=== PATIENT | female | born 1990 | race Hispanic/Latino ===

== ENCOUNTER 2022-08-04 04:03 | Emergency (ER) | payer OTHER, SELFPAY ==
[2022-08-04] VITALS (11 sets, daily range): BP systolic 119–140; BP diastolic 63–79; PULSE 94; RESP 18; TEMP 36.9; O2SAT 97–100
--- NOTE | ~2022-08-04 | CT_ITS ---
CT of the Abdomen and Pelvis: Indication: Abdominal pain Technique: 2.5 mm axial scans were obtained through the abdomen and pelvis following intravenous adm inistration of 100 cc of Omnipaque 350. Dose reduction technique was used on this scan by utilizing a utomated exposure control and iterative reconstruction technique. The dose-length product (DLP) was 1 344.46 mGy-cm. Findings: Scans through the lung bases are unremarkable. The liver, spleen, pancreas, gallbladder, adrenals and left kidney are within normal limits. There is a 2 mm right UVJ stone (axial image 169), with mild right hydroureteronephrosis. No evidence of aort ic aneurysm. No lymphadenopathy. No bowel obstruction or bowel wall thickening. There is no evidence to suggest acute appendicitis. Images through the pelvis were performed. Urinary bladder otherwise unremarkable. No adnexal mass see n. No ascites. Impression: 2 mm right UVJ stone, with mild right hydroureteronephrosis. Reviewed, dictated and finalized at location . [employer] Impression: 2 mm right UVJ stone, with mild right hydroureteronephrosis.
[2022-08-04 05:17] LABS: Basophils Percent Auto 0.2 % (0.2-1.2); Hemoglobin 13.2 g/dL (12.0-15.0); Immature Granulocyte Absolute 0.06 K/mm3 (0.00-0.031); Immature Granulocyte Percent A 0.4 % (0-0.5); Lymphocytes Absolute Auto 1.22 K/mm3 (0.9-3.2); Lymphocytes Percent Auto 8.5 % (18.3-44.2); Mean Corpuscular Hemoglobin 28.5 pg (26-34); Mean Corpuscular Volume 86.4 fl (80-100); Mean Platelet Volume 9.5 fl (7.4-10.4); Monocytes Absolute Auto 0.5 K/mm3 (0.1-0.6); Monocytes Percent Auto 3.1 % (2.6-8.5); Neutrophils Absolute Auto 12.7 K/mm3 (1.3-6.7); Neutrophils Percent Auto 87.8 % (45.5-73.1); Platelet Count Result 432 k/mm3 (150-375); Red Blood Count 4.63 M/mm3 (4.2-5.4); Red Cell Distribution Width 13.4 % (11.5-14.5); White Blood Count 14.4 K/mm3 (4.5-10.0)
[2022-08-04] MEDS: SODIUM CHLORIDE 0.9% IV 1,000 ML 999 ML IV CONT ×2 (05:19→08:35)
[2022-08-04] MEDS: KETOROLAC 30 MG/ML VIAL (*BKC) IV PUSH (05:19)
[2022-08-04] MEDS: ONDANSETRON INJ 4 MG/2 ML VIAL IV PUSH (05:20)
--- NOTE | 2022-08-04 05:21 | ED.ABDPAIN ---
HPI - Abdominal Pain General Chief Complaint: Abdominal Pain <Shawnee Nuno MD - Last Filed: 08/04/22 07:21> Stated Complaint: abdominal pain/N/V <Shawnee Nuno MD - Last Filed: 08/04/22 07:21> Time Seen by Provider: 08/04/22 04:49 <Shawnee Nuno MD - Last Filed: 08/04/22 07:21> Source: patient and RN notes reviewed <Shawnee Nuno MD - Last Filed: 08/04/22 07:21> Mode of arrival: ambulatory <Shawnee Nuno MD - Last Filed: 08/04/22 07:21> Limitations: no limitations <Shawnee Nuno MD - Last Filed: 08/04/22 07:21> History of Present Illness HPI narrative: This is a 31 year old female with history of PCOS who presents for evaluation of right lower abdominal pain. She developed pain yesterday afternoon around 5 pm. She reports pain is constants and it intermittent radiates down her right leg. She developed nausea and vomiting with chills yesterday as well. She also reports dysuria. She denies being told of having ovarian cyst. She has not taken any medication for pain. Rates pain 8/10. <Shawnee Nuno MD - Last Filed: 08/04/22 07:21> Related Data Allergies/Adverse Reactions: Allergies Allergy/AdvReac Type Severity Reaction Status Date / Time Sulfa (Sulfonamide Allergy Rash Verified 08/04/22 05:10 Antibiotics) <Shawnee Nuno MD - Last Filed: 08/04/22 07:21> Review of Systems Constitutional: Constitutional: Denies weakness <Shawnee Nuno MD - Last Filed: 08/04/22 07:21> Cardiovascular: Cardiovascular: Denies syncope, Denies rapid heart rate, Denies irregular heart rhythm, Denies leg edema and Denies dyspnea <Shawnee Nuno MD - Last Filed: 08/04/22 07:21> Respiratory: Respiratory: Denies chest congestion, Denies hemoptysis, Denies excessive phlegm production and Denies dyspnea <Shawnee Nuno MD - Last Filed: 08/04/22 07:21> Gastrointestinal: Gastrointestinal: Reports abdominal pain, Denies hematochezia, Denies diarrhea, Reports nausea and Reports vomiting <Shawnee Nuno MD - Last Filed: 08/04/22 07:21> Genitourinary: Genitourinary: Reports abnormal vaginal bleeding, Denies hematuria, Reports nocturia and Reports dysuria <Shawnee Nuno MD - Last Filed: 08/04/22 07:21> Musculoskeletal: Musculoskeletal: Denies joint swelling, Denies loss of height and Denies muscle weakness <Shawnee Nuno MD - Last Filed: 08/04/22 07:21> Neurologic: Denies syncope, Denies focal weakness and Denies weakness <Shawnee Nuno MD - Last Filed: 08/04/22 07:21> [facility] Past Medical History Medical History: Medical History (Updated 08/04/22 @ 09:20 by Anupam Granados MD) PCOS (polycystic ovarian syndrome) <Shawnee Nuno MD - Last Filed: 08/04/22 07:21> Social History Social History: Social History (Updated 08/04/22 @ 05:26 by Shawnee Nuno MD) Smoking status: Never smoker <Shawnee Nuno MD - Last Filed: 08/04/22 07:21> Exam Const: Nutritional Appearance: well nourished and obese <Shawnee Nuno MD - Last Filed: 08/04/22 07:21> Orientation/consciousness: patient oriented x3 <Shawnee Nuno MD - Last Filed: 08/04/22 07:21> Limitations: no limitations <Shawnee Nuno MD - Last Filed: 08/04/22 07:21> HENMT: Head: normal to inspection <Shawnee Nuno MD - Last Filed: 08/04/22 07:21> Eyes: EOM: EOMs intact bilaterally <Shawnee Nuno MD - Last Filed: 08/04/22 07:21> Chest: Chest palpation & inspection: normal inspection of the chest <Shawnee Nuno MD - Last Filed: 08/04/22 07:21> Resp: Effort & Inspection: normal respiratory effort <Shawnee Nuno MD - Last Filed: 08/04/22 07:21> Auscultation: clear to auscultation bilaterally <Shawnee Nuno MD - Last Filed: 08/04/22 07:21> Cardio: Rate: regular rate <Shawnee Nuno MD - Last Filed: 08/04/22 07:21> Rhythm: regular rhythm <Shawnee Nuno MD - Last Filed: 08/04/22 07:21> Heart sounds: no murmurs <
[2022-08-04 05:27] LABS: Alanine Aminotransferase 26 U/L (6-35); Albumin Level 4.8 g/dL (3.5-5.1); Alkaline Phosphatase 85 U/L (38-126); Anion Gap 10 mmol/L (8-16); Aspartate Amino Transferase 26 U/L (14-36); Bilirubin,Total 0.5 mg/dL (0.2-1.3); Blood Urea Nitrogen 12 mg/dL (7-17); Calcium 9.8 mg/dL (8.4-10.2); Carbon Dioxide 24 mmol/L (22-30); Chloride 102 mmol/L (98-107); Estimated CRCL calculation 139 ml/min; Estimated Glomerular Filt Rate > 60; Glucose 139 mg/dL (65-110); Lipase 47 U/L (23-300); Potassium 3.8 mmol/L (3.4-5.0); Sodium 136 mmol/L (137-145)
[2022-08-04 05:37] LABS: Appearance Urine Cloudy (Clear); Bacteria Urine None Seen /hpf; Bilirubin Urine Negative (Negative); Blood Urine 3+ (Negative); Color Urine Yellow (Yellow); Glucose Urine UA Negative (Negative); Ketones Urine 1+ mg/dL (Negative); Leukocyte Esterase Ur 1+ LEU/UL (Negative); Nitrate Urine Negative (Negative); Non Pathogenic Casts 0-2; Protein Urine 1+ mg/dL (Negative); RBC Urine >100 /hpf (0-2); Specific Grav Ur 1.024 (1.001-1.035); Squamous Epithelial Cell Urine Occasional /hpf (Few); Urobilinogen Urine 0.2 mg/dL (<2.0); pH Urine 7.5 (5.0-9.0)
[2022-08-04 05:55] LABS: Add Urine Microscopic? YES
[2022-08-04] MEDS: HYDROmorphone HCL INJ (*CRX) 1 MG/ML SYR 0.5 MG IV PUSH (08:35)
[2022-08-04] MEDS: METOCLOPRAMIDE HCL INJ 10 MG/2 ML VIAL IV PUSH (08:35)
[2022-08-04] MEDS: TAMSULOSIN HCL 0.4 MG CAPSULE PO (08:41)
== END 2022-08-04 10:35 | disposition home or self-care (01) ==
PROVIDERS: Emergency Provider General Practice; PCP Family Medicine
DX: N13.2 Hydronephrosis with renal and ureteral calculous obstruction (principal); E28.2 Polycystic ovarian syndrome
CPT/HCPCS: 36415; 74177; 80053; 81001; 81025; 83690; 85025; 87086; 87088; 87147; 96361; 96374; 96375; 99284; A9270; J1170; J1885; J2405; J2765; J7030; Q9967

== ENCOUNTER 2022-12-22 01:17 | Emergency (ER) | payer OTHER, SELFPAY ==
--- NOTE | ~2022-12-22 | CT_ITS ---
Non-contrast CT scan of the Abdomen and Pelvis Clinical indication: Abdominal pain Technique: 2.5 mm axial scans were obtained through the abdomen and pelvis without intravenous or or al contrast. Dose reduction technique was used on this scan by utilizing automated exposure control a nd iterative reconstruction technique. The dose-length product (DLP) was 664.03 mGy-cm. COMPARISON: 08/04/2022 Findings: Images through the lung bases reveal no abnormalities. Suspected 2 mm stone at the right UVJ, versus possibly phlebolith. Distal ureter is difficult to visu alized. Probable minimal right hydronephrosis. Additional punctate nonobstructing right renal stone i s present. No left renal or left ureteral stone. No left hydronephrosis. The liver, spleen, pancreas, gallbladder, and adrenals appear normal. There is no aortic aneurysm. There is no evidence of bowel obstruction. Normal appendix. Images through the pelvis were performed. There is no evidence of ascites or lymphadenopathy. Probabl e 2.5 cm right adnexal cyst. Impression: Suspected 2 mm right UVJ stone with minimal right hydronephrosis, similar to prior exam. Small pelvic phlebolith is a potential alternative consideration. Distal ureter is difficult to visualize on this exam. Additional punctate nonobstructing right renal stone. Probable 2.5 cm right adnexal cyst. Reviewed, dictated and finalized at [facility]. Impression: Suspected 2 mm right UVJ stone with minimal right hydronephrosis, similar to pr ior exam. Small pelvic phlebolith is a potential alternative consideration. Dis fransisca ureter is difficult to visualize on this exam. Additional punctate nonobstructing right renal stone. Probable 2.5 cm right adnexal cyst.
[2022-12-22 01:22] VITALS: BP 132/81; PULSE 90; RESP 18; TEMP 36.4; O2SAT 100
[2022-12-22 01:38] LABS: Basophils Absolute Auto 0.1 K/mm3 (0.0-0.1); Basophils Percent Auto 0.4 % (0.2-1.2); Eosinophils Absolute Auto 0.5 K/mm3 (0-0.3); Hematocrit 39.1 % (37.0-47.0); Hemoglobin 12.7 g/dL (12.0-15.0); Immature Granulocyte Absolute 0.06 K/mm3 (0.00-0.031); Immature Granulocyte Percent A 0.5 % (0-0.5); Lymphocytes Absolute Auto 2.05 K/mm3 (0.9-3.2); Mean Corpuscular HGB Conc 32.5 g/dl (32-36); Mean Corpuscular Volume 86.3 fl (80-100); Mean Platelet Volume 9.3 fl (7.4-10.4); Monocytes Absolute Auto 0.8 K/mm3 (0.1-0.6); Monocytes Percent Auto 6.9 % (2.6-8.5); Neutrophils Absolute Auto 8.6 K/mm3 (1.3-6.7); Neutrophils Percent Auto 71.2 % (45.5-73.1); Platelet Count Result 382 k/mm3 (150-375); Red Blood Count 4.53 M/mm3 (4.2-5.4); Red Cell Distribution Width 13.6 % (11.5-14.5); White Blood Count 12.1 K/mm3 (4.5-10.0)
[2022-12-22 01:44] LABS: Appearance Urine Clear (Clear); Bacteria Urine None Seen /hpf; Bilirubin Urine Negative (Negative); Color Urine Yellow (Yellow); Glucose Urine UA Negative (Negative); Ketones Urine Negative (Negative); Leukocyte Esterase Ur Negative LEU/UL (Negative); Nitrate Urine Negative (Negative); Non Pathogenic Casts 0-2; Protein Urine Negative (Negative); Squamous Epithelial Cell Urine None seen /hpf (Few); Urobilinogen Urine 0.2 mg/dL (<2.0); WBC Urine 0-5 /hpf
[2022-12-22 01:47] LABS: Alanine Aminotransferase 31 U/L (6-35); Albumin Level 4.4 g/dL (3.5-5.1); Alkaline Phosphatase 99 U/L (38-126); Anion Gap 6 mmol/L (8-16); Aspartate Amino Transferase 27 U/L (14-36); Bilirubin,Total 0.4 mg/dL (0.2-1.3); Blood Urea Nitrogen 11 mg/dL (7-17); Calcium 9.3 mg/dL (8.4-10.2); Carbon Dioxide 26 mmol/L (22-30); Chloride 104 mmol/L (98-107); Estimated CRCL calculation 120 ml/min; Estimated Glomerular Filt Rate > 60; Glucose 106 mg/dL (65-110); Potassium 3.6 mmol/L (3.4-5.0); Sodium 136 mmol/L (137-145)
[2022-12-22 01:48] LABS: Add Urine Microscopic? YES
--- NOTE | 2022-12-22 02:11 | ED.ABDPAIN ---
HPI - Abdominal Pain General Chief Complaint: Urogenital-Female Stated Complaint: r flank pain Time Seen by Provider: 12/22/22 01:43 History of Present Illness HPI narrative: This is a 32-year-old female with past history of kidney stones, presenting to the emergency department complaining of right lower quadrant abdominal pain, described as intermittently sharp and cramping for the past day. Patient states her pain began this morning, initially in the back and now radiating to the right lower quadrant. She also complains of sensation of need to urinate. She denies fevers, chills though has had nausea and vomiting Related Data Home Medications Medication Instructions Recorded Confirmed drospirenone 3 mg-ethinyl 1 tablet PO DAILY 10/19/22 10/19/22 estradiol 0.03 mg tablet Allergies Allergy/AdvReac Type Severity Reaction Status Date / Time Sulfa (Sulfonamide Allergy Severe Rash Verified 10/19/22 14:10 Antibiotics) Review of Systems Review of Systems: CONSTITUTIONAL: Denies fever, chills, or sweats. CARDIOVASCULAR: Denies chest pain, palpitations, or edema. RESPIRATORY: Denies cough or dyspnea. GASTROINTESTINAL: Right lower quadrant abdominal pain, right flank pain, nausea denies vomiting, or diarrhea. GENITOURINARY: Denies dysuria or hematuria. SKIN: Denies rash or itching. MUSCULOSKELETAL: Denies back pain, joint pain, or myalgia. NEUROLOGIC: Denies headache, numbness, dizziness, or weakness. PSYCHIATRIC: Denies anxiety or depression. [facility] Past Medical History Medical History (Updated 12/22/22 @ 05:21 by Tl Lam MD) Gallstones Gastroesophageal reflux disease without esophagitis Irritable bowel syndrome Mood disorder PCOS (polycystic ovarian syndrome) PCOS (polycystic ovarian syndrome) Family History Family History Father Family history of elevated blood lipids Family history of type 2 diabetes mellitus Social History Social History Smoking status: Never smoker Second hand tobacco smoke exposure: No Alcohol intake: current Substance use: never Substance use type: does not use Lack of Transportation: No Lack of Food: Never True Current Housing: I Have Housing Concerned About Future Housing: No Difficulty Paying Gas/Electric Bills: No Difficulty Paying for Meds: No Currently Unemployed: No Education: Bachelor's Degree Difficulty w/ Childcare or Family Care: No Spiritual care concerns: No Agree to blood products: Yes Exam Narrative: GENERAL: Well-developed, well-nourished, and in no acute distress. HEAD: Normocephalic, atraumatic. EYES: PERRLA and EOMI. ENT: Nares clear, no rhinorrhea or epistaxis. Mucous membranes dry. Oropharynx without tonsillar hypertrophy exudate or other lesions. CHEST: Clear to auscultation. No respiratory distress. No wheezes rales or rhonchi HEART: Regular rate and rhythm. No murmur heard. Normal peripheral pulses. ABDOMEN: Soft, mild tenderness to palpation in the RLQ without rebound or guarding, nondistended, normal active bowel sounds. Right CVA tenderness to palpation, no left CVA tenderness to palpation EXTREMITIES: Normal range of motion. No edema. SKIN: Warm, dry, no rash. NEURO: No focal deficits. Alert and oriented x3. PSYCH: Normal mood and affect. Course Course Emergency Course: 05:20 - CT abdomen pelvis demonstrates a 2mm stone at the right UVJ. UA not concerning for UTI. CBC demonstrates WBC elevation at 12.1 but is otherwise unremarkable. CMP unremarkable. The patient's pain is controlled. Will discharge with Tamsulosin, pain medications and nausea medications. Will refer the patient to urology. Discussed return and emergency precautions including signs/symptoms of acute abdomen and sepsis. The patient voiced understanding and is comfortable with the plan. All questions answered to her s
[2022-12-22] MEDS: ONDANSETRON INJ 4 MG/2 ML VIAL IV PUSH (02:57)
[2022-12-22] MEDS: KETOROLAC 30 MG/ML VIAL (*BKC) IV PUSH (02:57)
[2022-12-22] MEDS: MORPHINE SULFATE (*CRX) 2 MG/ML INJ IV PUSH (02:58)
[2022-12-22 04:14] VITALS: BP 142/74; PULSE 97; RESP 20; O2SAT 98
[2022-12-22 06:16] VITALS: BP 111/69; PULSE 68; RESP 20; O2SAT 98
== END 2022-12-22 06:19 | disposition home or self-care (01) ==
PROVIDERS: Emergency Provider Preventive Medicine Aerospace Medicine; PCP Family Medicine
DX: N20.0 Calculus of kidney (principal); R10.31 Right lower quadrant pain; K21.9 Gastro-esophageal reflux disease without esophagitis; K58.9 Irritable bowel syndrome, unspecified; E28.2 Polycystic ovarian syndrome; Z79.85 Long-term (current) use of injectable non-insulin antidiabetic drugs
CPT/HCPCS: 36415; 74176; 80053; 81001; 81025; 85025; 96374; 96375; 99284; J1885; J2270; J2405

== ENCOUNTER → 2023-02-17 11:17 | Outpatient (CLI) | payer OTHER, SELFPAY ==
--- NOTE | ~2023-02-17 | XR_ITS ---
Thoracic spine: Clinical Indication: Back pain AP and lateral views were performed. No fracture is seen. There is normal alignment of the vertebrae. The intervertebral disc spaces appe ar normal. Paravertebral soft tissues appear normal. Impression: No significant abnormalities noted. Reviewed, dictated and finalized at [facility]. Impression: No significant abnormalities noted.
--- NOTE | ~2023-02-17 | XR_ITS ---
Lumbosacral Spine: AP, oblique, and lateral views Clinical History: Pain Findings: The normal lordotic curve is maintained. The vertebral bodies and posterior elements are i ntact. The intervertebral disc spaces are preserved. The sacroiliac joints are normally outlined. Impression: No significant abnormality. Reviewed, dictated and finalized at [facility]. Impression: No significant abnormality.
== END ==
PROVIDERS: PCP Family Medicine; Visit Provider Family Medicine
DX: M47.816 Spondylosis without myelopathy or radiculopathy, lumbar region (principal); M54.6 Pain in thoracic spine
CPT/HCPCS: 72070; 72110

== ENCOUNTER 2023-05-10 11:48 | Outpatient (CLI) | payer OTHER, SELFPAY ==
[2023-05-10 13:12] LABS: Influenza A QL RT-PCR Negative (Negative); Influenza B QL RT-PCR Negative (Negative); RSV RNA, RT-PCR Negative (Negative); SARS-CoV-2 RNA PCR Negative (Negative)
== END 2023-05-10 11:49 | disposition home or self-care (01) ==
LOC: ANHLAB 11:49
PROVIDERS: PCP Family Medicine; Visit Provider Family Medicine
DX: J06.9 Acute upper respiratory infection, unspecified (principal); Z20.822 Contact with and (suspected) exposure to COVID-19
CPT/HCPCS: 87637

== ENCOUNTER 2023-05-24 11:56 | Outpatient (CLI) | payer OTHER, SELFPAY ==
--- NOTE | ~2023-05-24 | XR_ITS ---
Clinical Indication: Cough PA and lateral views of the chest: Comparison: None Findings: The lungs are clear, without evidence of focal consolidation or pleural effusion. Cardiome diastinal silhouette is within normal limits. Bones and soft tissues are unremarkable. Impression: Normal chest. Reviewed, dictated and finalized at location . [employer] Impression: Normal chest.
== END 2023-05-24 11:57 | disposition home or self-care (01) ==
PROVIDERS: PCP Family Medicine; Visit Provider Physician Assistant
DX: R05.9 Cough, unspecified (principal)
CPT/HCPCS: 71046

== ENCOUNTER 2023-07-20 17:28 | Outpatient (CLI) | payer OTHER, SELFPAY ==
[2023-07-20 18:18] LABS: Appearance Urine Clear (Clear); Bacteria Urine None Seen /hpf; Bilirubin Urine Negative (Negative); Blood Urine 3+ (Negative); Color Urine Yellow (Yellow); Glucose Urine UA Negative (Negative); Ketones Urine Negative (Negative); Leukocyte Esterase Ur Negative LEU/UL (Negative); Nitrate Urine Negative (Negative); Non Pathogenic Casts 0-2; Protein Urine Negative (Negative); RBC Urine 51-100 /hpf (0-2); Specific Grav Ur 1.019 (1.001-1.035); Squamous Epithelial Cell Urine Occasional /hpf (Few); Urobilinogen Urine 0.2 mg/dL (<2.0); WBC Urine 0-5 /hpf; pH Urine 6.5 (5.0-9.0)
[2023-07-20 18:23] LABS: Add Urine Microscopic? YES
== END 2023-07-20 17:29 | disposition home or self-care (01) ==
LOC: ANHLAB 17:30
PROVIDERS: PCP Family Medicine; Visit Provider Family Medicine
DX: M54.9 Dorsalgia, unspecified (principal); N20.0 Calculus of kidney
CPT/HCPCS: 81001

== ENCOUNTER 2023-07-23 19:22 | Emergency (ER) | payer OTHER, SELFPAY ==
--- NOTE | ~2023-07-23 | CT_ITS ---
EXAMINATION: CT abdomen pelvis wo con DATE: 07/23/2023 23:19 INDICATION: R abd pain, hematuria, R flank pain TECHNIQUE: Computed tomography (CT) of the abdomen and pelvis was performed without intravenous contr ast. Automated exposure control and iterative reconstruction technique were employed. The dose-length product was 445.60 mGy-cm. COMPARISON: 12/22/2022. FINDINGS: Lower thorax: Unremarkable Liver: Normal. Biliary/Gallbladder: Gallbladder is normal. No bile duct dilation. Pancreas: No mass or duct dilation. Spleen: Normal. Adrenals:No mass. Kidneys: No suspicious mass, obstructing stone, or hydronephrosis. Punctate nonobstructing right uppe r pole calcification. GI tract: No small or large bowel dilation. Normal appendix. Mesentery/Peritoneum: No ascites, mass, or free air. Retroperitoneum: No mass. Pelvis: Pelvic organs are within normal limits. Soft Tissues: Soft tissues and body wall unremarkable. Bones: No acute osseous finding. IMPRESSION: No acute abdominopelvic process detected. Reviewed, dictated and finalized at location [facility]
[2023-07-23 19:42] VITALS: BP 150/104; PULSE 87; RESP 18; TEMP 36.2; O2SAT 100
--- NOTE | 2023-07-23 19:45 | ED.FEMALEGU ---
HPI - Female Genitourinary General Chief complaint: Urogenital-Female Stated complaint: hematura Time Seen by Provider: 07/23/23 19:46 Focused HPI: 32 y/o F with a hx of kidney stones reports for evaluation for hematuria and back pain x1 week. Pt reports associated intermittent dysuria, urinary freq and urgency, nausea and vomiting. Denies known fever. Reports R sided abdominal pain. States she is concerned she has another kidney stone. Her urologists name Dr. Gordon at [facility]. LMP 2 weeks ago. GENERAL: Well-appearing, well-nourished, and in no acute distress. HEAD: Normocephalic, atraumatic. CHEST: Clear to auscultation. ?No respiratory distress. HEART: Regular rate and rhythm.? ABD: Tenderness to RUQ and RLQ. R CVA tenderness. No rebound, guarding or rigidity NEURO: ?Alert and oriented x3. Patient screened in triage and initial orders placed.? ?Additional care and disposition to be based upon?diagnostic testing and treatment. History of Present Illness HPI Narrative: 32 y/o F with a hx of kidney stones reports for evaluation for hematuria and back pain x1 week. Pt reports associated intermittent dysuria, urinary freq and urgency, nausea and vomiting. Denies known fever. Reports R sided abdominal pain and low back pain. States she is concerned she has another kidney stone. Her urologists name Dr. Gordon at [facility]. LMP 2 weeks ago. Reports history of PCOS. She denies vaginal discharge or concern for STDs. She has never been sexually active. Related Data Home Medications Medication Instructions Recorded Confirmed drospirenone 3 mg-ethinyl 1 tablet PO DAILY 10/19/22 05/27/23 estradiol 0.03 mg tablet Allergies Allergy/AdvReac Type Severity Reaction Status Date / Time Sulfa (Sulfonamide Allergy Severe Rash Verified 06/08/23 11:38 Antibiotics) Review of Systems Review of Systems: CONSTITUTIONAL: Denies fever, chills, or sweats. EYES: Denies visual changes, redness, or discharge. ENT: Denies rhinorrhea, congestion, sore throat, or otalgia. CARDIOVASCULAR: Denies chest pain, palpitations, or edema. RESPIRATORY: Denies cough or dyspnea. GASTROINTESTINAL: See HPI GENITOURINARY: See HPI SKIN: Denies rash or itching. MUSCULOSKELETAL: See HPI NEUROLOGIC: Denies headache, numbness, or weakness. PSYCHIATRIC: Denies anxiety or depression. [facility] Past Medical History Medical History (Updated 07/24/23 @ 00:52 by Ana María Mendiola PA-C) Gallstones Gastroesophageal reflux disease without esophagitis Irritable bowel syndrome Mood disorder PCOS (polycystic ovarian syndrome) PCOS (polycystic ovarian syndrome) Family History Family History Father Family history of elevated blood lipids Family history of type 2 diabetes mellitus Social History Social History Smoking status: Never smoker Second hand tobacco smoke exposure: No Alcohol intake: current Substance use: never Substance use type: does not use Lack of Transportation: No Lack of Food: Never True Current Housing: I Have Housing Concerned About Future Housing: No Difficulty Paying Gas/Electric Bills: No Difficulty Paying for Meds: No Currently Unemployed: No Education: Bachelor's Degree Difficulty w/ Childcare or Family Care: No Spiritual care concerns: No Agree to blood products: Yes Exam Narrative: GENERAL: Well-appearing, well-nourished, and in no acute distress. Patient resting comfortably in exam bed. She is pleasant and conversational. HEAD: Normocephalic, atraumatic. EYES: PERRLA and EOMI. ENT: Nares clear, no rhinorrhea or epistaxis. Mucous membranes moist. NECK: Supple. CHEST: Clear to auscultation. No respiratory distress. HEART: Regular rate and rhythm. No murmur heard. Normal peripheral pulses. ABDOMEN: Normoactive bowel sounds. Abdomen soft with mild tenderness in the right l
[2023-07-23 20:18] LABS: Basophils Percent Auto 0.4 % (0.2-1.2); Eosinophils Absolute Auto 0.1 K/mm3 (0-0.3); Eosinophils Percent Auto 1.5 % (0-4.4); Hematocrit 38.8 % (37.0-47.0); Hemoglobin 12.5 g/dL (12.0-15.0); Immature Granulocyte Absolute 0.02 K/mm3 (0.00-0.031); Immature Granulocyte Percent A 0.2 % (0-0.5); Lymphocytes Absolute Auto 1.93 K/mm3 (0.9-3.2); Mean Corpuscular HGB Conc 32.2 g/dl (32-36); Mean Corpuscular Hemoglobin 28.4 pg (26-34); Mean Corpuscular Volume 88.2 fl (80-100); Mean Platelet Volume 9.4 fl (7.4-10.4); Monocytes Absolute Auto 0.6 K/mm3 (0.1-0.6); Monocytes Percent Auto 6.6 % (2.6-8.5); Neutrophils Absolute Auto 6.5 K/mm3 (1.3-6.7); Neutrophils Percent Auto 70.3 % (45.5-73.1); Platelet Count Result 428 k/mm3 (150-375); Red Cell Distribution Width 13.1 % (11.5-14.5); White Blood Count 9.2 K/mm3 (4.5-10.0)
[2023-07-23 20:22] LABS: Appearance Urine Turbid (Clear); Bacteria Urine None Seen /hpf; Bilirubin Urine 2+ (Negative); Blood Urine 3+ (Negative); Color Urine Red (Yellow); Glucose Urine UA Negative (Negative); Ketones Urine Negative (Negative); Leukocyte Esterase Ur 1+ LEU/UL (Negative); Nitrate Urine Negative (Negative); Non Pathogenic Casts 0-2; Protein Urine 1+ mg/dL (Negative); RBC Urine >100 /hpf (0-2); Specific Grav Ur 1.014 (1.001-1.035); Squamous Epithelial Cell Urine Occasional /hpf (Few); Urobilinogen Urine 0.2 mg/dL (<2.0)
[2023-07-23 20:23] LABS: Add Urine Microscopic? YES
[2023-07-23 20:29] LABS: Alanine Aminotransferase 17 U/L (6-35); Albumin Level 4.3 g/dL (3.5-5.1); Alkaline Phosphatase 63 U/L (38-126); Anion Gap 8 mmol/L (8-16); Aspartate Amino Transferase 21 U/L (14-36); Bilirubin,Total 0.5 mg/dL (0.2-1.3); Blood Urea Nitrogen 10 mg/dL (7-17); Calcium 9.3 mg/dL (8.4-10.2); Carbon Dioxide 24 mmol/L (22-30); Chloride 105 mmol/L (98-107); Estimated CRCL calculation 130 ml/min; Estimated Glomerular Filt Rate > 60; Glucose 122 mg/dL (65-110); Lipase 117 U/L (23-300); Potassium 3.6 mmol/L (3.4-5.0); Sodium 137 mmol/L (137-145)
[2023-07-24 00:24] LABS: Pregnancy On Board Control Positive; Urine Pregnancy Test Negative
[2023-07-24] MEDS: ACETAMINOPHEN 500 MG TABLET 1000 MG PO (00:29)
[2023-07-24 00:34] VITALS: BP 127/86; PULSE 79; RESP 17; O2SAT 96
[2023-07-24 00:46] VITALS: BP 123/72; PULSE 82; RESP 24
[2023-07-24 01:00] VITALS: PULSE 75; RESP 24
[2023-07-24] MEDS: IBUPROFEN 400 MG TABLET 800 MG PO (01:02)
== END 2023-07-24 01:12 | disposition home or self-care (01) ==
PROVIDERS: Emergency Provider Physician Assistant; PCP Family Medicine
DX: N93.8 Other specified abnormal uterine and vaginal bleeding (principal)
CPT/HCPCS: 36415; 74176; 80053; 81001; 81025; 83690; 85025; 87086; 99284; A9270

== ENCOUNTER 2023-10-22 14:37 | Emergency (ER) | payer OTHER, SELFPAY ==
--- NOTE | 2023-10-22 14:39 | ED.URI ---
HPI - URI/Sore Throat General Chief Complaint: Upper Respiratory Infection Stated Complaint: throat raw,difficulty breathing last pm Time Seen by Provider: 10/22/23 15:08 Source: patient and RN notes reviewed Mode of arrival: ambulatory Limitations: no limitations History of Present Illness HPI Narrative: 33-year-old female presents with concern for for off throat, feeling of difficulty breathing last night when she woke up. She reports she restarted the metformin yesterday, she thinks she may be having a reaction to that. MD elicited complaint: sore throat Related Data Home Medications Medication Instructions Recorded Confirmed drospirenone 3 mg-ethinyl 1 tablet PO DAILY 10/19/22 09/08/23 estradiol 0.03 mg tablet metformin 500 mg tablet,extended 500 mg PO DAILY 10/22/23 10/22/23 release 24 hr Allergies Allergy/AdvReac Type Severity Reaction Status Date / Time Sulfa (Sulfonamide Allergy Severe Rash Verified 10/22/23 15:06 Antibiotics) Review of Systems Review of Systems: CONSTITUTIONAL: Denies malaise, chills, sweats, or fever. EYES: Denies visual changes, redness, or discharge. ENT: Denies rhinorrhea, congestion, sinus pain, otalgia. Reports sore throat. CARDIOVASCULAR: Denies chest pain, palpitations, or edema. RESPIRATORY: Denies cough. Denies current dyspnea. Reports feeling of trouble breathing overnight GASTROINTESTINAL: Denies abdominal pain, nausea, vomiting, diarrhea SKIN: Denies rash or itching. MUSCULOSKELETAL: Denies myalgia. NEUROLOGIC: Denies headache. All systems reviewed & are unremarkable except as noted in HPI and below PMFSH Past Medical History Medical History (Updated 10/22/23 @ 15:14 by Hina Sanchez NP) Gallstones Gastroesophageal reflux disease without esophagitis Irritable bowel syndrome Mood disorder PCOS (polycystic ovarian syndrome) PCOS (polycystic ovarian syndrome) Family History Family History Father Family history of elevated blood lipids Family history of type 2 diabetes mellitus Social History Social History Smoking status: Never smoker Second hand tobacco smoke exposure: No Alcohol intake: current Substance use: never Substance use type: does not use Lack of Transportation: No Lack of Food: Never True Current Housing: I Have Housing Concerned About Future Housing: No Difficulty Paying Gas/Electric Bills: No Difficulty Paying for Meds: No Currently Unemployed: No Education: Bachelor's Degree Difficulty w/ Childcare or Family Care: No Spiritual care concerns: No Agree to blood products: Yes Comments At time of signature, agree with nursing past medical, surgical, social and family history. There is no relevant family history pertinent to the presenting complaint Exam Narrative: GENERAL: Well-appearing, well-nourished, and in no acute distress. HEAD: Normocephalic EYES: PERRLA, conjunctivae clear ENT: Nares clear. Mucous membranes moist. TM pearly golden with sharp light reflex bilaterally; no tragal tenderness. Oropharynx erythematous with erythema to the roof the mouth. Tonsils enlarged and without exudate, no drooling, no hoarseness, no trismus, uvula midline. NECK: Supple. No lymphadenopathy CHEST: Clear to auscultation, breath sounds equal. No wheezing, rhonchi, rales, or stridor. No respiratory distress, speaks in full sentences. HEART: Regular rate and rhythm. No murmur heard. SKIN: Warm, dry, no rash. NEURO: Alert and oriented x3. PSYCH: Normal mood and affect Course Course Emergency Course: Patient is aware of diagnosis, understands and agrees to treatment plan. Anticipatory guidance given. Patient agrees to follow-up as directed and is aware of reasons to seek care at the emergency department. Portions of this record may have been created with voice recognition software
[2023-10-22 14:48] VITALS: BP 139/84; PULSE 126; RESP 16; TEMP 37.8; O2SAT 100
== END 2023-10-22 15:18 | disposition home or self-care (01) ==
PROVIDERS: Emergency Provider Nurse Practitioner; PCP Family Medicine
DX: J02.0 Streptococcal pharyngitis (principal); K21.9 Gastro-esophageal reflux disease without esophagitis; E28.2 Polycystic ovarian syndrome
CPT/HCPCS: 87880; 99213; G0463

== ENCOUNTER 2023-11-09 11:01 | Emergency (ER) | payer OTHER, SELFPAY ==
--- NOTE | ~2023-11-09 | XR_ITS ---
EXAMINATION: XR ankle LT min 3V DATE: 11/09/2023 11:36 INDICATION: Left ankle pain and swelling. Inversion injury. TECHNIQUE: 4 views of left ankle were obtained. COMPARISON: None. FINDINGS: Bone alignment is normal. No fracture. Joint spaces are normal. There are enthesophytes at the posterior and plantar aspects of calcaneal tuberosity. Ankle soft tissue swelling is noted. IMPRESSION: 1. No fracture. Reviewed, dictated and finalized at location A. IMPRESSION: 1. No fracture.
--- NOTE | 2023-11-09 11:06 | ED.LOWEXIN ---
HPI - Extremity Injury (Lower) General Chief Complaint: Extremity Injury, Lower Stated Complaint: left foot injury Time Seen by Provider: 11/09/23 11:20 Source: patient, RN notes reviewed and old records reviewed Mode of arrival: ambulatory Limitations: no limitations History of Present Illness HPI Narrative: 33-year-old female presents to the [facility] with left lateral ankle pain and swelling. Patient states that she was walking downstairs missed the bottom 2 stairs and rolled her ankle underneath her. Swelling noted to the lateral malleolus. Onset (ago): day(s) (1) Related Data Home Medications Medication Instructions Recorded Confirmed drospirenone 3 mg-ethinyl 1 tablet PO DAILY 10/19/22 11/09/23 estradiol 0.03 mg tablet Allergies Allergy/AdvReac Type Severity Reaction Status Date / Time Sulfa (Sulfonamide Allergy Severe Rash Verified 11/09/23 11:02 Antibiotics) Review of Systems Review of Systems: All systems reviewed & are unremarkable except as noted in HPI and below Constitutional: Constitutional: Reports no additional constitutional complaints Eyes: Eyes: Reports no additional eye complaints ENT: Reports system reviewed and no additional complaints, except as documented Cardiovascular: Cardiovascular: Reports no additional cardiovascular complaints, Denies chest pain and Denies dyspnea Respiratory: Respiratory: Reports no additional respiratory complaints, Denies chest congestion, Denies cough and Denies dyspnea Gastrointestinal: Gastrointestinal: Reports no additional gastrointestinal complaints, Denies abdominal pain, Denies nausea and Denies vomiting Musculoskeletal: Musculoskeletal: Reports as per HPI, Reports arthralgias and Reports joint swelling Integumentary/Breasts: Skin/Breast: Reports system reviewed and no additional complaints, except as docu Neurologic: Reports system reviewed and no additional complaints, except as documented Psychiatric: Psychiatric: Reports no additional psychiatric complaints Allergic/Immunologic: Allergic/Immunologic: Reports no additional allergic/immunologic complaints [facility] Past Medical History Medical History Gallstones Gastroesophageal reflux disease without esophagitis Irritable bowel syndrome Mood disorder PCOS (polycystic ovarian syndrome) PCOS (polycystic ovarian syndrome) Family History Family History Father Family history of elevated blood lipids Family history of type 2 diabetes mellitus Social History Social History (Reviewed 11/09/23 @ 14:19 by ALEJANDRA Long Smoking status: Never smoker Second hand tobacco smoke exposure: No Alcohol intake: current Substance use: never Substance use type: does not use Lack of Transportation: No Lack of Food: Never True Current Housing: I Have Housing Concerned About Future Housing: No Difficulty Paying Gas/Electric Bills: No Difficulty Paying for Meds: No Currently Unemployed: No Education: Bachelor's Degree Difficulty w/ Childcare or Family Care: No Spiritual care concerns: No Agree to blood products: Yes Comments At the time of my signature, I reviewed and agree with the nursing past medical, surgical, social, and family history. There is no relevant family history pertinent to the patient complaint. Exam Const: General: cooperative, healthy appearing, comfortable, no acute distress, well developed, alert and well nourished Nutritional Appearance: well nourished Orientation/consciousness: patient oriented x3 Limitations: no limitations HENMT: Head: normal to inspection Ears: hearing grossly normal bilaterally and external ears normal Face/Nose/Sinus: Normal external nose present, Normal nares present, Normal nasal mucous membranes and turbinates present, normal facial exam and face symmetric Face and sinus: normal facial exam and face
[2023-11-09 11:22] VITALS: BP 139/76; PULSE 112; RESP 20; TEMP 36.8; O2SAT 98
== END 2023-11-09 12:15 | disposition home or self-care (01) ==
PROVIDERS: Emergency Provider Nurse Practitioner; PCP Family Medicine
DX: S93.402A Sprain of unspecified ligament of left ankle, initial encounter (principal); S96.912A Strain of unspecified muscle and tendon at ankle and foot level, left foot, initial encounter; X50.9XXA Other and unspecified overexertion or strenuous movements or postures, initial encounter; K21.9 Gastro-esophageal reflux disease without esophagitis; E28.2 Polycystic ovarian syndrome
CPT/HCPCS: 73610; 99213; G0463

== ENCOUNTER 2024-05-12 11:36 | Outpatient (CLI) | payer OTHER, SELFPAY ==
--- NOTE | ~2024-05-12 | US_ITS ---
EXAMINATION: US transvaginal DATE: 05/12/2024 12:06 INDICATION: Pelvic pain. TECHNIQUE: Multiple transvaginal sonographic images of the pelvis were obtained. COMPARISON: CT abdomen and pelvis 07/23/2023 FINDINGS: The uterus measures 6.3 x 3.6 x 4.4 cm. There is no free fluid in the pelvis. The endometrial complex measures 4 mm in thickness. There are nabothian cysts in the cervix. The right ovary measures 6.4 x 2.3 x 3.0 cm. There is a 2.4 cm dominant follicle in right ovary. There is a 2.5 cm hypoechoic mass i n the right adnexa. The left ovary measures 2.7 x 1.7 x 2.2 cm. There is normal vascular flow in the ovaries. IMPRESSION: 1. 2.5 cm hypoechoic mass in the right adnexa separate from the ovary of uncertain etiology. This fin ding could be a hemorrhagic cyst, part of bowel, an enlarged lymph node, or other benign or (less lik arya) malignant etiology. Consider pelvis CT with contrast or pelvis MRI without and with contrast. Reviewed, dictated and finalized at location A. R COVERING LAYER IMPRESSION: 1. 2.5 cm hypoechoic mass in the right adnexa separate from the ovary of uncert ain etiology. This finding could be a hemorrhagic cyst, part of bowel, an enlar ged lymph node, or other benign or (less likely) malignant etiology. Consider p jocelyn CT with contrast or pelvis MRI without and with contrast.
== END 2024-05-12 11:37 | disposition home or self-care (01) ==
LOC: MICIMG 11:37
PROVIDERS: PCP Family Medicine; Visit Provider Nurse Practitioner
DX: R10.2 Pelvic and perineal pain (principal)
CPT/HCPCS: 76830

== ENCOUNTER 2024-06-09 12:46 | Outpatient (CLI) | payer OTHER, SELFPAY ==
--- NOTE | ~2024-06-09 | MR_ITS ---
EXAMINATION: MR pelvis wo/w con DATE: 06/09/2024 13:54 INDICATION: Right pelvic pain. Adnexal mass. TECHNIQUE: Magnetic resonance imaging (MRI) of the pelvis was performed without and with 20 mL MultiH ance intravenous contrast. COMPARISON: Ultrasound , CT abdomen and pelvis 07/23/2023 FINDINGS: There are no dilated loops of bowel. There are nabothian cysts in the cervix. The ovaries are normal. There is a 2.4 cm corpus luteum cyst in right ovary. There are no dilated loops of bowel. There are no pathologically enlarged lymph nodes. There is no free intraperitoneal fluid. IMPRESSION: 1. 2.4 cm corpus luteum cyst in right ovary. Reviewed, dictated and finalized at location A. [employer]
== END 2024-06-09 12:47 | disposition home or self-care (01) ==
LOC: MICIMG 12:46
PROVIDERS: PCP Family Medicine; Visit Provider Obstetrics & Gynecology Gynecology
DX: R10.2 Pelvic and perineal pain (principal); R19.09 Other intra-abdominal and pelvic swelling, mass and lump
CPT/HCPCS: 72197; A9577

== ENCOUNTER 2024-09-11 15:32 | Outpatient (CLI) | payer OTHER, SELFPAY ==
--- NOTE | ~2024-09-11 | US_ITS ---
Pelvic ultrasound. Clinical History: Pelvic pain Technique: Realtime transabdominal scanning of the pelvis was performed. Color flow Doppler and Doppl er spectral analysis were performed. Findings: The uterus is anteverted, and measures 7.1 x 3.5 x 4.3 cm. The endometrial stripe has a th ickness of 3 mm. No focal mass is identified. The right ovary measures 3.6 x 2.0 x 3.6 cm. No significant right ovarian or adnexal mass is seen. The left ovary measures 4.6 x 1.9 x 3.7 cm. No significant left ovarian or adnexal mass is seen. Vascular flow probably present both ovaries on Doppler spectral analysis. There is no evidence of free fluid in the cul de sac. Impression: No significant abnormality seen. Reviewed, dictated and finalized at [facility]. Impression: No significant abnormality seen.
== END 2024-09-11 15:33 | disposition home or self-care (01) ==
LOC: MICIMG 15:32
PROVIDERS: PCP Family Medicine; Visit Provider Obstetrics & Gynecology Gynecology
DX: R10.2 Pelvic and perineal pain (principal); N83.201 Unspecified ovarian cyst, right side
CPT/HCPCS: 76856

== ENCOUNTER 2025-04-23 16:25 | Emergency (ER) | payer OTHER, SELFPAY ==
[2025-04-23 16:34] VITALS: BP 127/65; PULSE 92; RESP 18; TEMP 36.4; O2SAT 100
--- NOTE | 2025-04-23 16:43 | ED_ITS ---
HPI - Female Genitourinary General Chief complaint: Urogenital-Female Stated complaint: UTI Time Seen by Provider: 04/23/25 16:35 Source: patient Mode of arrival: ambulatory Limitations: no limitations History of Present Illness HPI Narrative: Vladimir is a 34-year-old female patient presenting to the clinic today with complaints of possible UTI. She reports symptoms started 2 days ago. Has not taken any medications for her symptoms. Is complaining of burning, frequency, urgency, and incontinence. Noticed some blood in her urine this morning. Denies any fevers, chills, body aches, nausea, vomiting, back pain, or abdominal pain. Last menstrual period was March 30 2025. No concern for or STIs. Related Data Home Medications ?Medication ?Instructions ?Recorded ?Confirmed ?Last Taken ?Type drospirenone 3 mg-ethinyl 1 tablet PO DAILY 10/19/22 1 06/17/24 Unknown History estradiol 0.03 mg tablet semaglutide (weight loss) 0.5 0.5 mg subcut WEEKLY 05/0104/17/25 Unknown History mg/0.5 mL subcutaneous pen injector (Wegovy) Allergies Allergy/AdvReac Type Severity Reaction Status Date / Time Sulfa (Sulfonamide Allergy Severe Rash Verified 04/23/25 16:33 Antibiotics) [facility] Past Medical History Medical History (Updated 04/23/25 @ 16:48 by Marquez Lind APRN) PCOS (polycystic ovarian syndrome) Gallstones Gastroesophageal reflux disease without esophagitis Irritable bowel syndrome Mood disorder PCOS (polycystic ovarian syndrome) Family History Family History (Reviewed 04/17/25 @ 14:40 by Lashay Tobar [facility]) Father Family history of elevated blood lipids Family history of type 2 diabetes mellitus Social History Social History Smoking status: Never smoker Second hand tobacco smoke exposure: No Alcohol intake: current Substance use: never Substance use type: does not use Lack of Transportation: No Lack of Food: Never True Current Housing: I Have Housing Concerned About Future Housing: No Difficulty Paying Gas/Electric Bills: No Difficulty Paying for Meds: No Currently Unemployed: No Education: Bachelor's Degree Difficulty w/ Childcare or Family Care: No Spiritual care concerns: No Agree to blood products: Yes Comments At the time of my signature, I reviewed and agree with the nursing past medical, surgical, social, and family history. There is no relevant family history pertinent to the patient complaint. Exam Narrative: General: Well-developed, obese, in no apparent distress. Head: Normocephalic, atraumatic. Cardio: Regular rate and rhythm, s1 and s2 normal, no murmur appreciated. Resp: Clear to auscultation bilaterally, no rhonchi, rales, wheezing or rubs. Abdomen: Soft, pliable, bowel sounds present in all quadrants, non-tender to palpation, no organomegly, no CVAT tenderness. Course Course Emergency Course: Portions of this record may have been created with voice recognition software. Level of Care: Express Care Visit Vital Signs Vital signs: Vital Signs Temperature 36.4 C 04/23/25 16:34 Pulse Rate 92 04/23/25 16:34 Respiratory Rate 18 04/23/25 16:34 Blood Pressure 127/65 04/23/25 16:34 Pulse Oximetry 100 04/23/25 16:34 Oxygen Delivery Room Air 04/23/25 16:34 Temperature 36.4 C 04/23/25 16:34 Pulse Rate 92 04/23/25 16:34 Respiratory Rate 18 04/23/25 16:34 Blood Pressure 127/65 04/23/25 16:34 Pulse Oximetry 100 04/23/25 16:34 Oxygen Delivery Room Air 04/23/25 16:34 Vital signs reviewed MDM - Female Genitourinary MDM Narrative Medical decision making narrative: At the time of visit patient is resting comfortably on the exam table. Patient appears to be nontoxic. Complaints of possible UTI. She reports symptoms started two days ago. Has not taken any medications for her symptoms. Is complaining of burning, frequency, urgency, and incontinence. Noticed some blood in her urine this morning. Denies any fevers, chills, body aches, nausea, vomiting, back pain, or abdominal pain. Last menstrual period was March 30 2025. No concern for or STIs. On exam patient has soft, pliable, nondistended abdomen, nontender to palpation, no CVAT tenderness, no organomegaly. Plan: I suspect patient has UTI. Prescription for cephalexin was sent to the pharmacy. Supportive measures were discussed with the patient and they voiced understanding discharge instructions and agrees to treatment plan. Return precautions reviewed Differential Diagnosis Differential diagnosis: Likely urinary tract infection and cystitis Lab Data Labs: Lab Results 04/23/25 Range/Units 16:44 POC Urine Color Dark POC Urine Clarity Clear POC Urine pH 6.0 POC Ur Specif [place] 1.020 POC Urine Protein Negative (Negative) POC Ur Glucose (UA) Negative (Negative) POC Urine Ketones Negative (Negative) POC Urine Blood 2+ (Negative) POC Urine Nitrite Negative (Negative) POC Urine Bilirubin Negative (Negative) POC Urine Urobilinogen 0.2 POC U Leukocyte Esteras Trace (Negative) Discharge Plan Discharge Clinical Impression: UTI (urinary tract infection) Qualifiers: Urinary tract infection type: acute cystitis Hematuria presence: with hematuria Qualified Code(s): N30.01 - Acute cystitis with hematuria Patient Disposition: Home Condition: Stable Instructions: Antibiotic Form, Urinary Tract Infection in Women (ED) Additional Instructions: Urine shows leukocytes and blood in your urine. We will send urine for culture. Increase fluids and stay well hydrated Wipe front to back. May use wet wipes. Avoid tub baths If sexually active- pee before and after intercourse. Wear cotton panties Avoid tight clothing up against the genitals Follow up with your PCP in 1 week if symptoms persist. Patient Language: Albanian Prescriptions: New cephalexin 500 mg capsule 500 mg PO Q12H 7 Days Qty: 14 0RF No Action drospirenone-ethinyl estradiol 3-0.03 mg tablet 1 tablet PO DAILY icosapent ethyl [Vascepa] 1 gram capsule 2 g PO BID Qty: 120 1RF Wegovy 0.5 mg/0.5 mL pen injector 0.5 mg subcut WEEKLY Rx Instructions: administer weeks 5 through 8 of therapy lurasidone [Latuda] 60 mg tablet 60 mg PO QPM Qty: 60 2RF Rx Instructions: must administer with food (at least 350 calories) alprazolam [Xanax] 0.25 mg tablet 0.25 mg PO TID PRN (Reason: stress) Qty: 30 0RF duloxetine 30 mg capsule,delayed release(DR/EC) 30 mg PO BID Qty: 60 4RF Follow-up/Referrals: Andrea,MD Gloria [Primary Care Provider, Family Practice] Time of Disposition: 16:48 Quality NIHSS Nursing Documentation ED NIHSS nursing documentation: reviewed/agree
[2025-04-23 16:46] LABS: EDUAAPPEAR Clear; EDUABILI Negative (Negative); EDUABLOOD 2+ (Negative); EDUACOLOR1 Dark; EDUAGLUCOSE Negative (Negative); EDUAKETONE Negative (Negative); EDUALEUKO Trace (Negative); EDUANITRATE Negative (Negative); EDUAPH 6.0; EDUAPROTEIN Negative (Negative); EDUASPGRAVITY 1.020; EDUAUROBILI 0.2
== END 2025-04-23 16:54 | disposition home or self-care (01) ==
PROVIDERS: Emergency Provider Nurse Practitioner Family; PCP Family Medicine
DX: N30.01 Acute cystitis with hematuria (principal); E28.2 Polycystic ovarian syndrome; K21.9 Gastro-esophageal reflux disease without esophagitis
CPT/HCPCS: 81003; 87086; 99213; G0463